=== PATIENT | male | born 1995 | race Two or more races ===

== ENCOUNTER 2020-06-18 23:34 | Inpatient (IN) | payer MEDICAID ==
[~2020-06-18] VITALS: Ht 182.9 cm; Wt 110.4 kg
[~2020-06-18 23:34] MED LIST: ASPI325T20 PO; CARV6.2512 PO; FURO20TA3 PO; GUAI600T31 PO; LISI-170 PO; SPIR25TA5 PO
[2020-06-19] MEDS ORDERED: ASPIRIN 81 MG TABLET CHEW ONE (00:19)
[2020-06-19] MEDS ORDERED: MORPHINE SULFATE 4 MG/ML, 1ML ONE ×2 (00:19→01:37)
[2020-06-19] MEDS: MORPHINE SULFATE 4 MG/ML, 1ML IVPush PRN ×2 (00:28→01:41)
[2020-06-19] MEDS ORDERED: ASPIRIN 81 MG TABLET CHEW PO ONE (00:30)
[2020-06-19 00:35] LABS: BASOPHILS % (AUTO) 1 % (0-1); EOSINOPHILS % (AUTO) 1 % (1-7); LYMPHOCYTES % (AUTO) 26 % (22-44); MEAN CORPUSCULAR HEMOGLOBIN 28.8 pg (27.5-34.5); MEAN CORPUSCULAR HGB CONC 33.1 g/dL (33.2-36.2); MEAN PLATELET VOLUME 8.9 fL (7.4-10.4); MONOCYTES % (AUTO) 12 % (2-9); NEUTROPHILS % (AUTO) 60 % (42-75); PLATELET COUNT 274 x10^3/uL (130-400); RED BLOOD COUNT 5.42 x10^6/uL (4.38-5.82); RED CELL DISTRIBUTION WIDTH 14.5 % (9.4-14.8)
[2020-06-19 00:37] LABS: MD NO
[2020-06-19 00:41] LABS: ALANINE AMINOTRANSFERASE 77 U/L (12-78); ALBUMIN 3.2 g/dL (3.4-5.0); ANION GAP 7 mmol/L (5-15); CALCIUM 8.3 mg/dL (8.5-10.1); CHLORIDE 110 mmol/L (98-107); CREATININE 0.94 mg/dL (0.7-1.3)
[2020-06-19 00:45] LABS: ALKALINE PHOSPHATASE 81 U/L (45-117); BILIRUBIN,TOTAL 0.3 mg/dL (0.2-1.0); TOTAL PROTEIN 6.4 g/dL (6.4-8.2)
[2020-06-19 00:47] LABS: TROPONIN I 0.142 ng/mL (0.000-0.045)
[2020-06-19] MEDS ORDERED: ONDANSETRON 2MG/ML, 2ML IV PRN (01:30)
[2020-06-19] MEDS: ENOXAPARIN 40 MG/0.4 ML SQ SCH (01:30)
[2020-06-19] MEDS ORDERED: FUROSEMIDE 40 MG/4 ML IV ONE (01:30)
[2020-06-19] MEDS ORDERED: ENOXAPARIN 40 MG/0.4 ML ONE (01:36)
[2020-06-19] MEDS ORDERED: FUROSEMIDE 40 MG/4 ML ONE (01:36)
[2020-06-19 02:03] VITALS: BP 147/101
[2020-06-19 02:07] LABS: TROPONIN I 0.148 ng/mL (0.000-0.045)
[2020-06-19] MEDS ORDERED: SACU1TAB4 PO (03:49)
[2020-06-19] MEDS ORDERED: ONDA4TAB13 SL (03:49)
[2020-06-19] MEDS ORDERED: SPIR25TA5 PO (03:49)
[2020-06-19] MEDS ORDERED: HYDR25CA94 PO (03:49)
[2020-06-19] MEDS ORDERED: CEPH500T PO (03:49)
[2020-06-19] MEDS: ASPIRIN 81 MG TABLET EC PO SCH (06:37)
[2020-06-19 07:54] LABS: BASOPHILS % (AUTO) 1 % (0-1); EOSINOPHILS % (AUTO) 2 % (1-7); LYMPHOCYTES % (AUTO) 34 % (22-44); MD NO; MEAN CORPUSCULAR HEMOGLOBIN 29.1 pg (27.5-34.5); MEAN CORPUSCULAR HGB CONC 33.3 g/dL (33.2-36.2); MEAN PLATELET VOLUME 8.7 fL (7.4-10.4); MONOCYTES % (AUTO) 12 % (2-9); NEUTROPHILS % (AUTO) 51 % (42-75); PLATELET COUNT 257 x10^3/uL (130-400); RED BLOOD COUNT 5.23 x10^6/uL (4.38-5.82); RED CELL DISTRIBUTION WIDTH 14.4 % (9.4-14.8)
[2020-06-19 08:00] LABS: ANION GAP 6 mmol/L (5-15); CALCIUM 8.5 mg/dL (8.5-10.1); CHLORIDE 108 mmol/L (98-107); CREATININE 0.95 mg/dL (0.7-1.3)
[2020-06-19 08:07] VITALS: BP 142/101
[2020-06-19 08:07] LABS: TROPONIN I 0.166 ng/mL (0.000-0.045)
[2020-06-19] MEDS: FAMOTIDINE 20 MG TABLET PO SCH (08:17)
[2020-06-19] MEDS: NITROGLYCERIN 0.4 MG BOTTLE (25 TABS) SL PRN ×4 (08:17→20:45)
[2020-06-19] MEDS: FUROSEMIDE 40 MG/4 ML IVPush SCH (08:17)
[2020-06-19 08:25] VITALS: BP 141/111
[2020-06-19] MEDS: ACETAMINOPHEN 650 MG/20.3 ML UDC PO PRN (09:00)
[2020-06-19] MEDS: SPIRONOLACTONE 25 MG TABLET PO SCH (13:27)
[2020-06-19] MEDS: LISINOPRIL 20 MG TABLET PO SCH ×2 (13:27→20:45)
[2020-06-19] MEDS: CARVEDILOL 6.25 MG TABLET PO SCH ×2 (13:29→21:07)
[2020-06-19 14:50] VITALS: BP 138/97
[2020-06-19 20:46] VITALS: BP 138/97
[2020-06-19 20:53] VITALS: BP 135/91
[2020-06-20 00:12] VITALS: BP 132/89
[2020-06-20] MEDS: ENOXAPARIN 40 MG/0.4 ML SQ SCH (01:54)
[2020-06-20] MEDS: CARVEDILOL 6.25 MG TABLET PO SCH (05:10)
[2020-06-20] MEDS: ASPIRIN 81 MG TABLET EC PO SCH (05:10)
[2020-06-20 05:51] LABS: ANION GAP 5 mmol/L (5-15); CALCIUM 8.4 mg/dL (8.5-10.1); CHLORIDE 106 mmol/L (98-107); CREATININE 1.25 mg/dL (0.7-1.3)
[2020-06-20 06:19] LABS: BASOPHILS % (AUTO) 1 % (0-1); EOSINOPHILS % (AUTO) 3 % (1-7); LYMPHOCYTES % (AUTO) 28 % (22-44); MEAN CORPUSCULAR HEMOGLOBIN 28.9 pg (27.5-34.5); MEAN CORPUSCULAR HGB CONC 33.5 g/dL (33.2-36.2); MONOCYTES % (AUTO) 13 % (2-9); NEUTROPHILS % (AUTO) 56 % (42-75); PLATELET COUNT 255 x10^3/uL (130-400); RED BLOOD COUNT 5.36 x10^6/uL (4.38-5.82); RED CELL DISTRIBUTION WIDTH 13.8 % (9.4-14.8)
[2020-06-20 06:47] LABS: MD SCAN
[2020-06-20 06:53] VITALS: BP 128/92
[2020-06-20] MEDS: FAMOTIDINE 20 MG TABLET PO SCH (08:48)
[2020-06-20] MEDS: FUROSEMIDE 40 MG/4 ML IVPush SCH (08:48)
[2020-06-20] MEDS: SPIRONOLACTONE 25 MG TABLET PO SCH (08:48)
[2020-06-20] MEDS: NITROGLYCERIN 0.4 MG BOTTLE (25 TABS) SL PRN (09:00)
[2020-06-20] MEDS: LISINOPRIL 20 MG TABLET PO SCH (09:00)
[2020-06-20] MEDS ORDERED: ACETAMINOPHEN 325 MG TABLET ONE (09:05)
[2020-06-20] MEDS: ACETAMINOPHEN 650 MG/20.3 ML UDC PO PRN (09:10)
[2020-06-20] MEDS ORDERED: FURO40TA6 PO (12:45)
[2020-06-20] MEDS ORDERED: ASPI81TA45 PO (12:45)
[2020-06-20] MEDS ORDERED: SACU1TAB4 PO (12:45)
[2020-06-20] MEDS ORDERED: CARV6.2512 PO (12:45)
[2020-06-20] MEDS ORDERED: SPIR25TA5 PO (12:45)
== END 2020-06-20 13:30 | disposition home or self-care (01) | DRG 281 ==
LOC: ED 06-19 00:44 → EDIP 06-19 01:24 → 5SO 06-19 01:58 → DCLOUNGE 06-20 13:24
PROVIDERS: ATTEND Internal Medicine
DX: I21.4 Non-ST elevation (NSTEMI) myocardial infarction (principal); I42.7 Cardiomyopathy due to drug and external agent; I50.9 Heart failure, unspecified; I27.20 Pulmonary hypertension, unspecified; R06.03 Acute respiratory distress; I08.1 Rheumatic disorders of both mitral and tricuspid valves; T43.625A Adverse effect of amphetamines, initial encounter; F15.90 Other stimulant use, unspecified, uncomplicated; Z79.899 Other long term (current) drug therapy; Z91.19 Patient's noncompliance with other medical treatment and regimen; Y92.89 Other specified places as the place of occurrence of the external cause; Z91.14 Patient's other noncompliance with medication regimen; Z82.49 Family history of ischemic heart disease and other diseases of the circulatory system
CPT/HCPCS: 36415; 71045; 80048; 80053; 83880; 84484; 85025; 85379; 93005; 96374; 96376; 99285; G0378; J1650; J1940; J2270